=== PATIENT | male | born 1965 | race African-American/Black ===

== ENCOUNTER 2022-07-28 10:54 | Emergency (ER) | payer BC, OTHER ==
[~2022-07-28] VITALS: Ht 188 cm; Wt 99.8 kg
--- NOTE | 2022-07-28 11:00 | NUR ---
[id number] DIZZINESS S/P MIXING RUBITUSSIN WITH UNKNOWN "PRESCRIPTION MED" PT WAS PICKED UP FROM HOME. PLACED IN BED, AAOX4, BREATHING EVEN AND UNLABORED SATURATING AT 97%RA.
--- NOTE | 2022-07-28 11:05 | NUR ---
AT BEDSIDE FOR EVAL.
--- NOTE | 2022-07-28 11:23 | NUR ---
BLOOD DRAWN AND SENT TO LAB
--- NOTE | 2022-07-28 11:26 | NUR ---
PATIENT TAKEN TO CT VIA MEGHAN
[2022-07-28] MEDS ORDERED: MECLIZINE HCL 25 MG TABLET PO ONE (11:30)
[2022-07-28] MEDS ORDERED: MECLIZINE HCL 25 MG TABLET ONE (11:38)
[2022-07-28 11:43] LABS: CALCIUM, SERUM 9.4 mg/dL (8.5-10.1); CARBON DIOXIDE 28 mmol/L (21-32); CHLORIDE 97 mmol/L (98-107); GLUCOSE 132 mg/dL (74-106); POTASSIUM 5.2 mmol/L (3.5-5.1); SODIUM SERUM 135 mmol/L (136-145); UREA NITROGEN, BLOOD 24 mg/dL (7-18)
[2022-07-28 11:46] LABS: CREATININE 10.5 mg/dL (0.6-1.3)
[2022-07-28 11:47] LABS: BASOPHILS # (AUTO) 0.1 K/uL (0.0-0.2); EOSINOPHILS % (AUTO) 2.6 % (0.0-6.0); HEMATOCRIT 29 % (39-51); HEMOGLOBIN 9.7 g/dL (13.5-17.5); LYMPHOCYTES # (AUTO) 0.8 K/uL (0.8-4.8); LYMPHOCYTES % (AUTO) 15.1 % (20.0-44.0); MEAN CORPUSCULAR HGB CONC 34 g/dl (31.0-36.0); MEAN CORPUSCULAR VOLUME 87 fL (80-96); MONOCYTES # (AUTO) 0.7 K/uL (0.1-1.30); NEUTROPHILS # (AUTO) 3.5 K/uL (1.8-8.9); NEUTROPHILS % (AUTO) 68.3 % (43.0-81.0); PLATELET COUNT (AUTO) 270 K/uL (150-450); RED BLOOD CELL COUNT(AUTO) 3.36 MIL/uL (4.5-6.0); WHITE BLOOD COUNT (AUTO) 5.1 K/uL (4.3-11.0)
[2022-07-28 11:55] LABS: ALANINE AMINOTRANSFERASE 20 U/L (12-78); ALBUMIN 3.7 g/dL (3.4-5.0); ALKALINE PHOSPHATASE 101 U/L (46-116); ASPARTATE AMINOTRANSFERASE 17 U/L (15-37); BILIRUBIN,DIRECT 0.1 mg/dL (0.0-0.2); BILIRUBIN,TOTAL 0.5 mg/dL (0.2-1.0); TOTAL PROTEIN, SERUM 8.2 g/dL (6.4-8.2)
[2022-07-28] MEDS ORDERED: MECL-159 PO (13:05)
[2022-07-28 13:18] VITALS: BP 145/90
== END 2022-07-28 13:18 | disposition home or self-care (01) ==
LOC: ER 10:57
DX: R42 Dizziness and giddiness (principal); I12.0 Hypertensive chronic kidney disease with stage 5 chronic kidney disease or end stage renal disease; N18.6 End stage renal disease; Z60.2 Problems related to living alone
CPT/HCPCS: 99285; 70450; 71045; 93005; 85025; 80048; 80076; 36415; 84484; 83880; J8597

== ENCOUNTER 2022-07-30 11:10 | Emergency (ER) | payer BC, OTHER ==
[~2022-07-30] VITALS: Ht 188 cm; Wt 103.4 kg
[~2022-07-30 11:10] MED LIST: MECL-159 PO
[2022-07-30] MEDS ORDERED: IV NS 0.9% 1,000 ML BAG IV ONE (11:30)
--- NOTE | 2022-07-30 11:30 | NUR ---
BIB RA 88 FROM [facility] PT HAS 2 SYNCOPAL EPISODE +LOC, HIT HIS HEAD but no visible injury. mentioned he was at the ER 2 DAYS AGO. NO OTHER SYMPTOMS NOTED. AMBULATORY. AOX4. HIS APPT TO HER DR LOPEZ WAS CANCELLED. NO CHEST PAIN NOR DIZZINESS. DR PERRY AT BESIDE FOR EVAL. PUT ON BED SIDE MONITOR. AWAITING FOR MD ORDERS.
--- NOTE | 2022-07-30 11:35 | NUR ---
IV INSERTED RAC 20G. BLD DRAWN AND SENT TO LAB
[2022-07-30 11:47] LABS: BASOPHILS % (AUTO) 0.9 % (0.0-2.0); EOSINOPHILS % (AUTO) 5.5 % (0.0-6.0); HEMATOCRIT 28 % (39-51); HEMOGLOBIN 9.1 g/dL (13.5-17.5); LYMPHOCYTES # (AUTO) 1.1 K/uL (0.8-4.8); MEAN CORPUSCULAR HGB CONC 33 g/dl (31.0-36.0); MEAN CORPUSCULAR VOLUME 87 fL (80-96); MONOCYTES # (AUTO) 0.3 K/uL (0.1-1.30); MONOCYTES % (AUTO) 10.4 % (2.0-12.0); NEUTROPHILS # (AUTO) 1.6 K/uL (1.8-8.9); NEUTROPHILS % (AUTO) 49.2 % (43.0-81.0); PLATELET COUNT (AUTO) 236 K/uL (150-450); RED BLOOD CELL COUNT(AUTO) 3.17 MIL/uL (4.5-6.0); WHITE BLOOD COUNT (AUTO) 3.3 K/uL (4.3-11.0)
[2022-07-30 11:54] LABS: CALCIUM, SERUM 9.2 mg/dL (8.5-10.1); POTASSIUM 4.9 mmol/L (3.5-5.1)
[2022-07-30 12:00] LABS: ALBUMIN 3.6 g/dL (3.4-5.0); BILIRUBIN,DIRECT 0.1 mg/dL (0.0-0.2); BILIRUBIN,TOTAL 0.4 mg/dL (0.2-1.0)
--- NOTE | 2022-07-30 12:00 | NUR ---
IVF HOOKED AND RUNNING AT RAC. WELL TOLERATED
[2022-07-30 12:02] LABS: CREATININE 9.8 mg/dL (0.6-1.3)
--- NOTE | 2022-07-30 13:56 | NUR ---
IV removed. Catheter intact and site benign. Pressure and 4x4 applied to site. No bleeding noted.
--- NOTE | 2022-07-30 14:03 | NUR ---
Patient discharged to home in stable condition. Written and verbal after care instructions given. Patient verbalizes understanding of instruction.
[2022-07-30 14:06] VITALS: BP 158/95
== END 2022-07-30 14:03 | disposition home or self-care (01) ==
LOC: ER 11:13
DX: I12.0 Hypertensive chronic kidney disease with stage 5 chronic kidney disease or end stage renal disease (principal); R55 Syncope and collapse; N18.6 End stage renal disease; D64.9 Anemia, unspecified; R79.89 Other specified abnormal findings of blood chemistry; Z60.2 Problems related to living alone; Z79.899 Other long term (current) drug therapy; Z99.2 Dependence on renal dialysis
CPT/HCPCS: 99285; 96360; 71045; 93005; 85025; 80048; 80076; 36415; 84484; 85730; 83880; 82962; J7030